=== PATIENT | male | born 1970 ===

== ENCOUNTER 2022-03-16 06:16 | Day surgery (SDC) | payer OTHER | END 2022-03-16 10:30 | disposition home or self-care (01) | LOC: AMB-ENDOS 06:16 | PROVIDERS: ATTEND Surgery | DX: K44.9 Diaphragmatic hernia without obstruction or gangrene (principal); Z20.822 Contact with and (suspected) exposure to COVID-19; I10 Essential (primary) hypertension; E03.9 Hypothyroidism, unspecified ==